=== PATIENT | female | born 1965 | race Caucasian/White ===

== ENCOUNTER 2020-07-08 08:33 | Day surgery (SDC) | payer BC ==
[~2020-07-08] VITALS: Ht 157.5 cm; Wt 92.6 kg
[2020-07-08 08:56] VITALS: BP 147/83; PULSE 68; TEMP 99.2
[2020-07-08 10:20] VITALS: BP 129/86; PULSE 63; TEMP 97.5
[2020-07-08 10:30] VITALS: BP 137/88; PULSE 64
--- NOTE | 2020-07-08 10:35 | NUR ---
PT RETURNED FROM ENDO PROCEDURE ROOM AMBULATING FROM CART TO BAY #4. PT DENIES PAIN, NAUSEA OR VOMITING. REQUESTS CRANBERRY JUICE AND BLUEBERRY MUFFIN. WILL MONITOR PROGRESS.
[2020-07-08 10:45] VITALS: BP 137/81; PULSE 55
--- NOTE | 2020-07-08 11:06 | NUR ---
PT A/OX3. DENIES PAIN, NAUSEA OR VOMITING. LUNGS CLEAR, HRR AND ADRIÁN. BOWEL SOUNDS PRESENT. IV DC'D TO RIGHT AC. PT TOLERATED WELL.
--- NOTE | 2020-07-08 11:10 | NUR ---
PT DC'D TO PT VEHICLE VIA WHEELCHAIR INTO [employer] CAR, BRAIN DRIVING.
== END 2020-07-08 11:05 | disposition home or self-care (01) ==
LOC: SDCO 08:33
DX: Z12.11 Encounter for screening for malignant neoplasm of colon (principal); E78.5 Hyperlipidemia, unspecified; Z88.1 Allergy status to other antibiotic agents
CPT/HCPCS: J2704; J7120

== ENCOUNTER → 2020-07-29 | Outpatient (CLI) | payer BC | LOC: MC.RAD 07:45 | DX: Z12.31 Encounter for screening mammogram for malignant neoplasm of breast (principal) ==